=== PATIENT | female | born 1995 | race Caucasian/White ===

== ENCOUNTER 2017-03-22 12:59 | Emergency (ER) | payer OTHER ==
[~2017-03-22] VITALS: Ht 167.6 cm; Wt 90.9 kg
[2017-03-22 13:02] VITALS: BP 136/87; PULSE 102; RESP 16; O2SAT 100
--- NOTE | 2017-03-22 13:21 | ED.REPORT ---
HPI-Rash / Abscess Date of Service Mar 22, 2017 ED Provider: Laura Schulz History of Present Illness: 3 weeks ago neck swelling and pain. Saw [employer] started augmentin and steroids. now with rash. finished steroids thu night 40 mg times 3 days. finsihed augmentin yesterday. rash started yesterday, also on hands.. now with increased tonsil swelling. [facility] is primary care. Strep was negative Nursing Notes Stated Complaint: ABD PAIN Chief Complaint: Female Abdominal Pain Allergies: Coded Allergies: NSAIDS (Non-Steroidal Anti-Inflamma (Verified Allergy, Unknown, 03/22/17) General Time Seen by MD: 13:20 Chief Complaint Rash, Other (sore throat) Hx Obtained From: Patient Onset Occurred: More than a week ago... (3 weeks) Symptom Duration: More than a week... (3 weeks) Past Medical History Past Medical History Denies: Asthma, Diabetes mellitus Past Surgical History denies Smoking History Never Smoker Social History Alcohol Use: "Social" Drug Use: Denies drug use Occupation live with boyfriend, work at [employer] 03/22/2017 Ambulatory Status Independent Review of Systems Basic Review of Systems : No dysuria, No frequency Neurologic: NL mental status, No weakness, No numbness Psychiatric: Normal thought content Physical Exam Initial Vital Signs Vital Signs (First) Date Time Temp Pulse Resp B/P Pulse Ox O2 Delivery O2 Flow Rate FiO2 03/22/17 13:02 37.4 102 16 136/87 100 Room Air Initial VS: Reviewed, Vital signs normal Head / Eyes: Atraumatic, Normocephalic, PERRL ENT: Mucous membranes moist, Conjunctiva normal, No scleral icterus Neck: Supple, Non-tender, Full range of motion Respiratory: Breath sounds normal, Clear to auscultation, No respiratory distress Cardiovascular: Regular rate & rhythm, Heart sounds normal, Intact distal pulses Abdomen / GI: Soft, Non-tender, No guarding, No rebound, No distention Back: No CVA tenderness Lymphatic: No lymphadenopathy Extremities: Vascular intact, Neuro intact, No swelling, No tenderness Neurologic: Alert, Oriented, Nonfocal Psychiatric: Mood/affect normal, Behavior normal, Normal thought content General/Constitutional: Awake, Alert Distress / Hydration: Positive: Distress mild Color / Condition: Positive: Rash present Rash / Lesion Notes: rash is diffuse including on her hands, heaviest on her face and upper chest. Pharynx / Tonsils / Uvula: Positive: Pharyngeal erythema, Tonsillar erythema L , Tonsillar erythema R, Tonsillar exudate L, Tonsillar exudate R, Tonsillar swelling L, Tonsillar swelling R enlarged lymph nodes bilateral in the anterior cervical chain Respiratory / Chest: Atraumatic, Breath sounds NL, Breath sounds = bilat, No respiratory distress Cardiovascular: Heart rate NL, Regular rhythm, Heart sounds NL, No gallop Interpretation & Diagnostics Lab Results Interpretation Result Diagram: 03/22/17 1400 03/22/17 1400 Test 03/22/17 14:00 White Blood Count 12.0th/mm3 (3.8-10.1) Red Blood Count 4.91mil/mm3 (3.90-5.20) Hemoglobin 14.5g/dL (12.0-15.6) Hematocrit 42.5% (35.0-46.0) Mean Corpuscular Volume 86.6fL (81-100) Mean Corpuscular Hemoglobin 29.5pg (27.0-35.0) Mean Corpuscular Hemoglobin Concent 34.1% (32.0-37.0) Red Cell Distribution Width 12.9% (12.3-15.4) Platelet Count 248bil/L (150-400) Neutrophils (%) (Auto) 19.4% (40-74) Lymphocytes (%) (Auto) 66.4% (14-46) Monocytes (%) (Auto) 10.5% (4-12) Eosinophils (%) (Auto) 0.1% (0-5) Basophils (%) (Auto) 3.2% (0-3) Hematology Comments Wbc Sodium Level 134mEq/L (134-144) Potassium Level 4.0mEq/L (3.5-5.2) Chloride Level 99mEq/L (97-108) Carbon Dioxide Level 20mmol/L (18-29) Blood Urea Nitrogen 8mg/dL (6-20) Creatinine 0.52mg/dL (0.57-1.00) Estimat Glomerular Filtration Rate 213mL/min (>59) Glucose Level 80mg/dL (60-99) Calcium Level 9.1mg/dL (8.5-10.1) Total Bilirubin 0.5mg/dL (0.0-1.2) Aspartate Amino Transf (AST/SGOT) 324U/L (0-50) Alanine Aminotransferase (ALT/SGPT) 376U/L (0-32) Alkaline Phosphatase 127U/L (25-150) Total Protein 8.1g/dL (6.4-8.4) Albumin 4.2g/dL (3.4-5.0) Hold Roger Top Tube Received (Received) Hepatitis C Comment . Monoscreen Positive (Negative) Lab Results Interpretation: mono positive. Informed patient by phone call. Test initially was not run, was told it would be sent out. Patient was informed because of her elevated liver enzymes it likely was mono. Left message on her cell phone at [phone] that results were positive Re-Eval/Medical Decision Med Decision/Clinical Course 21 year old female presents with 3 week hx of sore throat. Reports having completed a course of augmentin and a 3 day course of steroids which did decrease the swelling. No sign of [employer] Discharge & Departure Impression: Primary Impression: Mononucleosis Disposition: Home Patient Instructions: Mononucleosis (ED) Additional Instructions: The test for mono is being sent to [facility]. The results should be ready tomorrow. The rash that you have is likely related to the interaction of the antibiotics and the antibodies that your body is producing to fight the mono. Your liver enzymes are elevated which can frequently happen in mono. A hepatitis panel is being added on. You will be restarted on steroids, 40 mg and then taper down. Also a small amount of hydrocodone to help with pain. Note for off work this week. At some time in the future, it would be beneficial to have skin testing for ibuprofen to see if it is an allergy or not. I am sorry this is happening. Please follow with primary care later this week. Avoid contact sports. Get lots of rest! Cool foods, popsicles, ice cream, smoothies chilled pudding, chilled applesauce are all good options. Referrals: Angélica Javed EDSupervising Provider for APC: Aravind Amato MD copies to: Angélica Javed Sue ARNP Mar 22, 2017 13:21
[2017-03-22 14:31] LABS: BASOPHILS % (AUTO) 3.2 % (0-3); EOSINOPHILS % (AUTO) 0.1 % (0-5); MONOCYTES % (AUTO) 10.5 % (4-12); Mean Corpuscular Hemoglobin 29.5 pg (27.0-35.0); Mean Corpuscular Volume 86.6 fL (81-100); NEUTROPHILS % (AUTO) 19.4 % (40-74); Platelet Count 248 bil/L (150-400)
[2017-03-22 16:22] VITALS: BP 130/87; PULSE 102; RESP 16; O2SAT 100
[2017-03-24 02:09] LABS: Hepatitis A Antibody IgM Negative (Negative); Hepatitis B Core Antibody IgM Negative (Negative)
== END 2017-03-22 16:29 | disposition home or self-care (01) ==
LOC: SED 12:59
DX: B27.90 Infectious mononucleosis, unspecified without complication (principal); R10.9 Unspecified abdominal pain; Z88.6 Allergy status to analgesic agent
CPT/HCPCS: 36415; 80053; 85025; 86308; 86705; 86709; 87081; 87340; 87341; 99284; G0472